=== PATIENT | male | born 1990 | race Two or more races ===

== ENCOUNTER 2021-09-03 16:21 | Emergency (ER) | payer MEDICAID ==
[~2021-09-03] VITALS: Ht 170.2 cm; Wt 95.7 kg
--- NOTE | 2021-09-03 16:40 | NUR ---
DR MAY AT BEDSIDE
[2021-09-03] MEDS ORDERED: HYDROCODONE/APAP 5/325MG TABLET ONE (16:53)
--- NOTE | 2021-09-03 16:57 | NUR ---
WHEELED OUT VIA WHEELCHAIR TO RADIOLOGY
[2021-09-03] MEDS ORDERED: HYDROCODONE/APAP 5/325MG TABLET PO ONE (17:00)
--- NOTE | 2021-09-03 18:35 | NUR ---
WHEELED OUT VIA RNEY FOR CT SCAN
[2021-09-03] MEDS ORDERED: HYDROCODONE/APAP 10/325MG TABLET PO PRN (19:00)
[2021-09-03] MEDS ORDERED: ACETAMINOPHEN 325 MG TABLET PO PRN (19:00)
[2021-09-03] MEDS ORDERED: MORPHINE SULFATE INJ 2 MG/ML DISP.SYRIN IV PRN (19:00)
[2021-09-03] MEDS ORDERED: ONDANSETRON HCL/PF 4 MG/2 ML VIAL IVP PRN (19:00)
[2021-09-03] MEDS ORDERED: MAGNESIUM HYDROXIDE 30 ML UDC PO PRN (19:00)
[2021-09-03] MEDS ORDERED: Z GUARD REMEDY 4 OZ OINT TP PRN (19:00)
[2021-09-03] MEDS ORDERED: MAG HYDROX/AL HYDROX/SIMETH 30 ML UDC PO PRN (19:00)
--- NOTE | 2021-09-03 19:03 | NUR ---
GIL PEREA FROM [facility] CALLED TO OBTAIN INFORMATION FROM NURSE. WILL SET UP PEER TO PEER WITH ER .
--- NOTE | 2021-09-03 19:24 | NUR ---
ENDORSEMENT GIVEN TO SSUIE HINKLE FOR LISA
[2021-09-03 19:35] LABS: CALCIUM, SERUM 9.4 mg/dL (8.5-10.1); CREATININE 1.1 mg/dL (0.6-1.3); POTASSIUM 3.8 mmol/L (3.5-5.1)
[2021-09-03] MEDS ORDERED: HYDR-4303 PO (19:39)
[2021-09-03 19:50] LABS: BASOPHILS % (AUTO) 0.3 % (0.0-2.0); HEMATOCRIT 45 % (39-51); HEMOGLOBIN 15.4 g/dL (13.5-17.5); LYMPHOCYTES % (AUTO) 11.3 % (20.0-44.0); MEAN CORPUSCULAR HGB CONC 34 g/dl (31.0-36.0); MEAN CORPUSCULAR VOLUME 87 fL (80-96); MONOCYTES # (AUTO) 0.5 K/uL (0.1-1.30); MONOCYTES % (AUTO) 5.7 % (2.0-12.0); NEUTROPHILS # (AUTO) 7.2 K/uL (1.8-8.9); NEUTROPHILS % (AUTO) 82.7 % (43.0-81.0); PLATELET COUNT (AUTO) 226 K/uL (150-450); RED BLOOD CELL COUNT(AUTO) 5.18 MIL/uL (4.5-6.0); WHITE BLOOD COUNT (AUTO) 8.7 K/uL (4.3-11.0)
[2021-09-03 20:41] VITALS: BP 109/67
== END 2021-09-03 20:43 | disposition home or self-care (01) ==
LOC: ER 16:34
DX: S82.141A Displaced bicondylar fracture of right tibia, initial encounter for closed fracture (principal); R40.4 Transient alteration of awareness; R94.31 Abnormal electrocardiogram [ECG] [EKG]; V03.99XA Pedestrian with other conveyance injured in collision with car, pick-up truck or van, unspecified whether traffic or nontraffic accident, initial encounter; Y93.89 Activity, other specified; Y92.89 Other specified places as the place of occurrence of the external cause; Y99.8 Other external cause status
CPT/HCPCS: 36415; 70450-TC; 71045-TC; 72110-TC; 72131-TC; 73564-TC; 73700-TC; 80048-TC; 85025-TC; 85730-TC